=== PATIENT | male | born 1985 | race Caucasian/White ===

== ENCOUNTER 2023-11-19 07:42 | Emergency (ER) | payer MEDICAID, OTHER ==
[~2023-11-19] VITALS: Ht 172.7 cm; Wt 133.0 kg
[2023-11-19 09:23] LABS: Urine Blood 3+ /uL (Negative); Urine Clarity Clear (Clear); Urine Color Light-Yellow (Yellow); Urine Protein, UAD 2+ (Negative); Urine Specific Gravity 1.015 (1.001-1.035); Urine Urobilinogen Normal (Negative); Urine pH 5.5 (5.0-9.0)
[2023-11-19 09:28] LABS: Basophils # (auto) 0.1 10 ^3/uL (0-0.2); Eosinophils # (auto) 0.2 10 ^3/uL (0-0.8); Eosinophils % (auto) 1.7 % (0.0-7.0); Hematocrit 44.1 % (41.0-53.0); Hemoglobin 15.1 g/dL (13.5-17.5); Lymphocytes # (auto) 2.4 10 ^3/uL (0.4-5.4); Lymphocytes % (auto) 21.9 % (10.0-50.0); Mean Corpuscular Hgb Conc. 34.2 g/dL (32.0-36.0); Monocytes % (auto) 8.6 % (0.0-12.0); Neutrophils # (auto) 7.4 10 ^3/uL (1.6-8.6); Neutrophils % (auto) 66.8 % (37.0-80.0); Nucleated Red Blood Cells % 0.1 %; Platelet Count (auto) 346 10^3/uL (140-450); Red Blood Cells 5.58 10^6/uL (4.5-5.90); Red Cell Distribution Width 14.2 % (11.8-14.3); White Blood Cell 11.1 10^3/uL (4.4-10.8)
[2023-11-19 09:50] LABS: Alanine Aminotransferase 12 U/L (7-40); Albumin 4.4 g/dL (3.2-4.8); Alkaline Phosphatase 115 U/L (46-116); Anion Gap 5 (5-15); Aspartate Aminotransferase 8 U/L (13-40); BUN/Creatinine Ratio 19.4 (10.0-20.0); Bilirubin, Total 0.4 mg/dL (0.2-1.0); Blood Urea Nitrogen 20 mg/dL (9-23); Carbon Dioxide 25 mmol/L (20-30); Chloride 105 mmol/L (98-107); Glucose 230 mg/dL (74-106); Potassium 3.8 mmol/L (3.5-5.1); Sodium 135 mmol/L (136-145); Total Protein 7.9 g/dL (5.7-8.2)
[2023-11-19 10:29] VITALS: BP 152/102; PULSE 97; RESP 16; TEMP 98.2; O2SAT 96
[2023-11-19] MEDS: FUROSEMIDE 40 MG/4 ML VIAL IV ONE (11:51)
== END 2023-11-19 12:25 | disposition left against medical advice (07) ==
LOC: ER 07:42
DX: N04.9 Nephrotic syndrome with unspecified morphologic changes (principal); I10 Essential (primary) hypertension; E11.9 Type 2 diabetes mellitus without complications; E78.5 Hyperlipidemia, unspecified; E66.01 Morbid (severe) obesity due to excess calories; Z68.41 Body mass index [BMI] 40.0-44.9, adult
CPT/HCPCS: 36415; 71045; 80053; 81003; 83880; 85025; 93005; 93970

== ENCOUNTER 2023-11-21 15:00 | Inpatient (IN) | payer MEDICAID ==
[~2023-11-21] VITALS: Ht 175.3 cm; Wt 137.6 kg
[2023-11-21] MEDS ORDERED: HYDROcodone-ACET 5/325MG TAB PO PRN (22:15)
[2023-11-21] MEDS ORDERED: DEXTROSE (50%) 50ML SYRG IV PRN (22:15)
[2023-11-21] MEDS ORDERED: hydrALAZINE HCL 20 MG/ML VL IV PRN (22:15)
[2023-11-21] MEDS ORDERED: DOCUSATE SOD 100 MG CAP PO PRN (22:15)
[2023-11-21] MEDS ORDERED: ONDANSETRON HCL 4 MG/2 ML VIAL IV PRN (22:15)
[2023-11-21] MEDS ORDERED: NITROGLYCERIN 0.4 MG SL TAB SL PRN (23:00)
[2023-11-21] MEDS ORDERED: MORPHINE SULFATE INJ 2 MG/ml SYRG IV PRN (23:00)
[2023-11-21 23:02] LABS: Basophils # (auto) 0.1 10 ^3/uL (0-0.2); Eosinophils % (auto) 1.4 % (0.0-7.0); Lymphocytes % (auto) 29.8 % (10.0-50.0); Nucleated Red Blood Cells % 0.1 %
[2023-11-21 23:04] LABS: Basophils % (auto) 0.9 % (0.0-2.0); Eosinophils # (auto) 0.1 10 ^3/uL (0-0.8); Hematocrit 41.3 % (41.0-53.0); Hemoglobin 14.4 g/dL (13.5-17.5); Lymphocytes # (auto) 3.1 10 ^3/uL (0.4-5.4); Mean Corpuscular Hemoglobin 27.6 pg (28.0-32.0); Mean Corpuscular Hgb Conc. 34.9 g/dL (32.0-36.0); Mean Corpuscular Volume 79.1 fL (80.0-100.0); Monocytes % (auto) 9.3 % (0.0-12.0); Neutrophils # (auto) 6.1 10 ^3/uL (1.6-8.6); Neutrophils % (auto) 58.6 % (37.0-80.0); Platelet Count (auto) 300 10^3/uL (140-450); Red Blood Cells 5.22 10^6/uL (4.5-5.90); Red Cell Distribution Width 14.1 % (11.8-14.3); White Blood Cell 10.5 10^3/uL (4.4-10.8)
[2023-11-21 23:16] LABS: Alanine Aminotransferase 11 U/L (7-40); Albumin 4.1 g/dL (3.2-4.8); Alkaline Phosphatase 101 U/L (46-116); Anion Gap 5 (5-15); Aspartate Aminotransferase 11 U/L (13-40); BUN/Creatinine Ratio 20.7 (10.0-20.0); Blood Urea Nitrogen 24 mg/dL (9-23); Calcium 9.9 mg/dL (8.7-10.4); Carbon Dioxide 25 mmol/L (20-30); Chloride 106 mmol/L (98-107); Glucose 184 mg/dL (74-106); Potassium 3.4 mmol/L (3.5-5.1); Sodium 136 mmol/L (136-145)
[2023-11-21 23:17] LABS: Bilirubin, Total 0.5 mg/dL (0.2-1.0); Total Protein 7.4 g/dL (5.7-8.2)
[2023-11-22] VITALS (9 sets, daily range): BP systolic 124–153; BP diastolic 74–101; PULSE 72–93; RESP 17–20; TEMP 97.6–98.6; O2SAT 94–98
[2023-11-22] MEDS: FUROSEMIDE 40 MG/4 ML VIAL IV ONE ×2 (01:04→21:33)
[2023-11-22] MEDS: SODIUM CHLORIDE 0.9% 1,000 ML IV SCH (01:04)
[2023-11-22] MEDS ORDERED: METF-370 PO (03:50)
[2023-11-22] MEDS ORDERED: ATOR10TA52 PO (03:50)
[2023-11-22] MEDS ORDERED: POM PO (03:50)
[2023-11-22] MEDS ORDERED: AMLO1TAB23 PO (03:50)
[2023-11-22] MEDS: InsuLIN REG 1unit/0.01ml Soln (100units/ml) SC SCH ×2 (05:45→21:17)
[2023-11-22] MEDS: ACCU-CHEK COMFORT CURVE STRIP VI SCH (05:51)
[2023-11-22 08:59] LABS: Basophils # (auto) 0.1 10 ^3/uL (0-0.2); Eosinophils # (auto) 0.2 10 ^3/uL (0-0.8); Nucleated Red Blood Cells % 0.2 %
[2023-11-22 09:01] LABS: Basophils % (auto) 0.9 % (0.0-2.0); Eosinophils % (auto) 1.5 % (0.0-7.0); Hematocrit 44.1 % (41.0-53.0); Hemoglobin 15.2 g/dL (13.5-17.5); Lymphocytes # (auto) 2.8 10 ^3/uL (0.4-5.4); Lymphocytes % (auto) 28.8 % (10.0-50.0); Mean Corpuscular Hemoglobin 27.2 pg (28.0-32.0); Mean Corpuscular Hgb Conc. 34.5 g/dL (32.0-36.0); Monocytes # (auto) 0.8 10 ^3/uL (0-1.3); Monocytes % (auto) 8.4 % (0.0-12.0); Neutrophils # (auto) 5.9 10 ^3/uL (1.6-8.6); Neutrophils % (auto) 60.4 % (37.0-80.0); Platelet Count (auto) 341 10^3/uL (140-450); Red Blood Cells 5.58 10^6/uL (4.5-5.90); Red Cell Distribution Width 14.2 % (11.8-14.3); White Blood Cell 9.8 10^3/uL (4.4-10.8)
[2023-11-22 09:26] LABS: Alanine Aminotransferase 13 U/L (7-40); Albumin 4.6 g/dL (3.2-4.8); Alkaline Phosphatase 108 U/L (46-116); Anion Gap 6 (5-15); Aspartate Aminotransferase 9 U/L (13-40); BUN/Creatinine Ratio 24.1 (10.0-20.0); Blood Urea Nitrogen 26 mg/dL (9-23); Calcium 9.7 mg/dL (8.7-10.4); Carbon Dioxide 26 mmol/L (20-30); Chloride 105 mmol/L (98-107); Glucose 154 mg/dL (74-106); Sodium 137 mmol/L (136-145)
[2023-11-22] MEDS: FUROSEMIDE 40 MG/4 ML VIAL IV SCH (09:26)
[2023-11-22 09:27] LABS: Bilirubin, Total 0.4 mg/dL (0.2-1.0); Total Protein 7.9 g/dL (5.7-8.2)
[2023-11-22] MEDS: ENOXAPARIN SOD 40 MG/0.4 ML SYRINGE SC SCH (09:27)
[2023-11-22] MEDS: POTASSIUM CHL 20 Meq TABLET PO ONE (09:27)
[2023-11-22] MEDS: amLODIPine BESYLATE 5 MG TAB PO SCH (09:28)
[2023-11-22] MEDS: METOPROLOL TARTRATE 25 MG TAB PO SCH (09:28)
[2023-11-22 09:42] LABS: Triglycerides 259 mg/dL (< 150)
[2023-11-22 09:43] LABS: LDL Cholesterol 120 mg/dL (< 100)
[2023-11-22 09:44] LABS: Cholesterol 202 mg/dL (< 200); HDL Cholesterol 33 mg/dL (40-59)
[2023-11-22 10:32] LABS: Urine Bacteria None Seen /hpf (None Seen)
[2023-11-22 10:43] LABS: Urine Blood 2+ /uL (Negative); Urine Clarity Clear (Clear); Urine Color Light-Yellow (Yellow); Urine Protein, UAD 1+ (Negative); Urine Urobilinogen Normal (Negative); Urine WBC <1 /hpf (0 - 3)
[2023-11-22 10:50] LABS: Amphetamine Screen, Urine Neg (NEGATIVE); Barbiturate Scree,Urine Neg (NEGATIVE); Benzodiazephine Screen, Urine Neg (NEGATIVE); Cannabinoid Screen, Urine Neg (NEGATIVE); Cocaine Screen, Urine Neg (NEGATIVE); Opiate Scree,Urine Neg (NEGATIVE); Phencyclidine Screen, Urine Neg (NEGATIVE)
[2023-11-22] MEDS: ERGOCALCIFEROL 50,000 UNIT(1.25MG) CAP PO SCH ×2 (17:22→20:50)
[2023-11-22] MEDS: INSULIN LANTUS (GLARGINE) 1 /0.01ml (100units/ml) SC SCH (17:23)
[2023-11-22] MEDS ORDERED: LOSA100T33 PO (17:41)
[2023-11-22] MEDS ORDERED: METF-911 PO (17:41)
[2023-11-22] MEDS ORDERED: FUROSEMIDE 40 MG/4 ML VIAL IV ONE (20:00)
[2023-11-22] MEDS: LOSARTAN POTASSIUM 50 MG TAB PO SCH (20:50)
[2023-11-22] MEDS: ATORVASTATIN 20 MG TAB PO SCH (21:17)
[2023-11-22] MEDS: FUROSEMIDE 40 MG/4 ML VIAL ONE (21:35)
[2023-11-22] MEDS ORDERED: ATORVASTATIN 20 MG TAB PO SCH (22:00)
[2023-11-23] VITALS (7 sets, daily range): BP systolic 119–147; BP diastolic 79–100; PULSE 70–91; RESP 16–18; TEMP 97.4–98.7; O2SAT 90–98
[2023-11-23] MEDS: ACETAMINOPHEN 325 MG TAB PO PRN (03:46)
[2023-11-23] MEDS: FUROSEMIDE 40 MG/4 ML VIAL IV SCH (06:09)
[2023-11-23 06:34] LABS: Basophils # (auto) 0.1 10 ^3/uL (0-0.2); Eosinophils # (auto) 0.3 10 ^3/uL (0-0.8); Mean Corpuscular Hemoglobin 26.8 pg (28.0-32.0); Monocytes # (auto) 1.3 10 ^3/uL (0-1.3); Neutrophils # (auto) 6.7 10 ^3/uL (1.6-8.6); Nucleated Red Blood Cells % 0.1 %; Red Cell Distribution Width 13.8 % (11.8-14.3)
[2023-11-23 06:37] LABS: Basophils % (auto) 0.8 % (0.0-2.0); Eosinophils % (auto) 2.6 % (0.0-7.0); Hematocrit 39.5 % (41.0-53.0); Hemoglobin 13.5 g/dL (13.5-17.5); Lymphocytes # (auto) 2.8 10 ^3/uL (0.4-5.4); Lymphocytes % (auto) 24.7 % (10.0-50.0); Mean Corpuscular Hgb Conc. 34.1 g/dL (32.0-36.0); Mean Corpuscular Volume 78.7 fL (80.0-100.0); Monocytes % (auto) 11.9 % (0.0-12.0); Platelet Count (auto) 288 10^3/uL (140-450); Red Blood Cells 5.02 10^6/uL (4.5-5.90); White Blood Cell 11.2 10^3/uL (4.4-10.8)
[2023-11-23 06:39] LABS: Anion Gap 6 (5-15); Carbon Dioxide 27 mmol/L (20-30); Chloride 102 mmol/L (98-107); Potassium 3.2 mmol/L (3.5-5.1); Sodium 135 mmol/L (136-145)
[2023-11-23 06:40] LABS: Calcium 9.5 mg/dL (8.7-10.4)
[2023-11-23 06:45] LABS: BUN/Creatinine Ratio 24.8 (10.0-20.0); Blood Urea Nitrogen 26 mg/dL (9-23); Glucose 159 mg/dL (74-106)
[2023-11-23] MEDS: MAGNESIUM SULFATE 1GM/100ML 100 ML IV ONE (07:15)
[2023-11-23] MEDS: POTASSIUM CHL 20MEQ/100ML 100 ML IV SCH (08:20)
[2023-11-23] MEDS: amLODIPine BESYLATE 5 MG TAB PO SCH (11:23)
[2023-11-23] MEDS: POTASSIUM CHL 20 Meq TABLET PO ONE (14:12)
[2023-11-23] MEDS: LACTULOSE 20Gm/30ML SOLN PO ONE (15:36)
[2023-11-24] VITALS (7 sets, daily range): BP systolic 111–138; BP diastolic 83–91; PULSE 72–82; RESP 18–22; TEMP 97.5–98.4; O2SAT 94–97
[2023-11-24] MEDS: EMPAGLIFLOZIN 10 MG TAB PO SCH (10:00)
[2023-11-24 12:07] LABS: Basophils # (auto) 0.1 10 ^3/uL (0-0.2); Eosinophils # (auto) 0.2 10 ^3/uL (0-0.8); Hemoglobin 14.6 g/dL (13.5-17.5)
[2023-11-24 12:09] LABS: Eosinophils % (auto) 1.9 % (0.0-7.0); Hematocrit 43.1 % (41.0-53.0); Lymphocytes # (auto) 2.4 10 ^3/uL (0.4-5.4); Lymphocytes % (auto) 24.3 % (10.0-50.0); Mean Corpuscular Hemoglobin 26.7 pg (28.0-32.0); Mean Corpuscular Hgb Conc. 33.8 g/dL (32.0-36.0); Mean Corpuscular Volume 78.9 fL (80.0-100.0); Monocytes # (auto) 0.9 10 ^3/uL (0-1.3); Monocytes % (auto) 9.6 % (0.0-12.0); Neutrophils # (auto) 6.2 10 ^3/uL (1.6-8.6); Neutrophils % (auto) 63.2 % (37.0-80.0); Nucleated Red Blood Cells % 0.1 %; Platelet Count (auto) 318 10^3/uL (140-450); Red Blood Cells 5.46 10^6/uL (4.5-5.90); White Blood Cell 9.8 10^3/uL (4.4-10.8)
[2023-11-24 12:15] LABS: Anion Gap 5 (5-15); Carbon Dioxide 28 mmol/L (20-30); Chloride 100 mmol/L (98-107); Potassium 3.6 mmol/L (3.5-5.1); Sodium 133 mmol/L (136-145)
[2023-11-24 12:16] LABS: Calcium 9.3 mg/dL (8.7-10.4)
[2023-11-24 12:21] LABS: BUN/Creatinine Ratio 21.1 (10.0-20.0); Blood Urea Nitrogen 24 mg/dL (9-23); Glucose 186 mg/dL (74-106)
[2023-11-24 12:22] LABS: Magnesium 1.7 mg/dL (1.6-2.6)
[2023-11-24 12:23] LABS: Phosphorus 3.3 mg/dL (2.4-5.1)
[2023-11-24] MEDS: GABAPENTIN 100 MG CAP PO ONE (13:05)
[2023-11-24] MEDS ORDERED: EMPA1TAB PO (16:26)
[2023-11-24] MEDS ORDERED: LOSA-534 PO (16:26)
[2023-11-24] MEDS ORDERED: FURO40TA4 PO (16:26)
[2023-11-24] MEDS ORDERED: MET25T PO (16:26)
[2023-11-24] MEDS ORDERED: ERGO1CAP23 PO (16:26)
[2023-11-24] MEDS ORDERED: AML5T PO (16:26)
[2023-11-24] MEDS ORDERED: ATOR20TA50 PO (16:26)
[2023-11-24] MEDS ORDERED: INSLANTI SC (16:26)
[2023-11-24] MEDS ORDERED: GAB100C PO (16:26)
[2023-11-24] MEDS ORDERED: GABAPENTIN 100 MG CAP PO SCH (22:00)
[2023-11-25] MEDS ORDERED: FUROSEMIDE 40 MG TAB PO SCH (10:00)
== END 2023-11-24 20:06 | disposition home or self-care (01) | DRG 194 ==
LOC: EDBD 15:00 → ER 15:00 → TELE 22:53 → TELE-WESTW 11-22 03:30 → WEST WING 11-23 00:06
PROVIDERS: ADMIT Internal Medicine Pulmonary Disease; ATTEND Internal Medicine Pulmonary Disease
DX: I11.0 Hypertensive heart disease with heart failure (principal); E11.21 Type 2 diabetes mellitus with diabetic nephropathy; E11.42 Type 2 diabetes mellitus with diabetic polyneuropathy; I50.23 Acute on chronic systolic (congestive) heart failure; E11.65 Type 2 diabetes mellitus with hyperglycemia; E78.5 Hyperlipidemia, unspecified; E87.6 Hypokalemia; E55.9 Vitamin D deficiency, unspecified; E66.01 Morbid (severe) obesity due to excess calories; Z83.3 Family history of diabetes mellitus; Z68.41 Body mass index [BMI] 40.0-44.9, adult; Z79.899 Other long term (current) drug therapy; Z79.4 Long term (current) use of insulin
CPT/HCPCS: 36415; 80048; 80053; 80061; 80307; 81001; 82306; 82607; 82962; 83036; 83735; 83880; 84100; 85025; 93306; 96361; 96374; G0378; J1815; J3480